=== PATIENT | female | born 1995 | race African-American/Black ===

== ENCOUNTER 2021-10-29 21:16 | Emergency (ER) | payer OTHER ==
[2021-10-29] MEDS ORDERED: Acetaminophen 500 MG TAB ONE (21:58)
[2021-10-29 22:05] LABS: #Eosinphils 0.1 10x3/uL (0.0-0.5); #Monocytes 0.4 10x3/uL (0.0-1.1); #Neutrophils 4.8 10x3/uL (1.5-8.4); %Basophils 0.4 % (0.0-2.0); %Eosinophils 1.8 % (0.0-6.0); %Lymphocytes 24.2 % (18.0-47.0); %Monocytes 5.9 % (0.0-10.0); %Neutrophils 66.6 % (40.0-75.0); Hemoglobin 10.7 g/dL (12.0-15.5); Mean Corpuscular HGB CONC 33.3 g/dL (32.0-36.0); Mean Corpuscular Hemoglobin 23.8 pg (27.0-33.0); Mean Corpuscular Volume 71.3 fl (81.6-98.3); Platelet Count 288 10x3/uL (150-450); RBC Distribution Width 20.4 % (11.5-14.5); White Blood Cell (WBC) Count 7.3 10x3/uL (3.5-10.5)
[2021-10-29 22:11] LABS: Bilirubin Neg (Negative); Blood, Urine 250 (Negative); Clarity Bloody (Clear); Glucose, Urine (Dipstick) Normal (Negative); Ketone, Urine Negative (Negative); Leukocyte Negative (Negative); Nitrite Negative (Negative); Protein, Urine (Dipstick) 500 mg/dl (Neg-Trace); Urobilinogen Normal mg/dL (Less than 2)
[2021-10-29 22:30] LABS: RBC/HPF Greater than 50 HPF (0-3)
[2021-10-29 22:34] LABS: Bacteria/HPF 1+ HPF (None Seen)
[2021-10-29 22:35] LABS: Mucous/LPF 1+ LPF (<2+)
== END 2021-10-29 23:34 | disposition home or self-care (01) ==
LOC: CSHERS 21:16
DX: O20.0 Threatened abortion (principal); O99.331 Smoking (tobacco) complicating pregnancy, first trimester; F17.290 Nicotine dependence, other tobacco product, uncomplicated; Z3A.11 11 weeks gestation of pregnancy
CPT/HCPCS: 36415; 76856; 81003; 81015; 84702; 85025; 86900; 86901; 93976

== ENCOUNTER 2022-04-23 10:03 | Day surgery (SDC) | payer OTHER ==
[2022-04-23] MEDS ORDERED: hydrALAZINE 20 MG/ML VIAL SLOW IVP PRN (11:08)
[2022-04-23] MEDS ORDERED: Fioricet 325/50/40 mg Tablet PO SCH (11:15)
== END 2022-04-23 12:56 | disposition home or self-care (01) ==
LOC: CSHLD/OP 10:03
PROVIDERS: ATTEND Obstetrics & Gynecology
DX: O36.8130 Decreased fetal movements, third trimester, not applicable or unspecified (principal); O99.891 Other specified diseases and conditions complicating pregnancy; R51.9 Headache, unspecified; Z3A.36 36 weeks gestation of pregnancy
CPT/HCPCS: 76819

== ENCOUNTER 2022-05-11 13:03 | Day surgery (SDC) | payer OTHER ==
[2022-05-11 13:33] VITALS: BMI 21.4
[2022-05-11] MEDS ORDERED: hydrALAZINE 20 MG/ML VIAL SLOW IVP PRN (13:39)
[2022-05-11 13:57] LABS: Bilirubin Neg (Negative); Blood, Urine Negative (Negative); Clarity Clear (Clear); Glucose, Urine (Dipstick) Normal (Negative); Ketone, Urine 15 mg/dL (Negative); Leukocyte Negative (Negative); Nitrite Negative (Negative); Protein, Urine (Dipstick) Negative (Neg-Trace); Urobilinogen Normal mg/dL (Less than 2); pH, Urine 6.5 (5.0-9.0)
[2022-05-11 14:34] LABS: Bacteria/HPF None Seen HPF (None Seen); CAUTI Indications for Culture Pelvic or flank pain; RBC/HPF None Seen HPF (0-3); Squamous Epithelial 0-3 HPF (0-3); WBC/HPF None Seen HPF (0-3)
[2022-05-11 14:36] LABS: Urine Culture Reflex No No
[2022-05-11] MEDS ORDERED: Cyclobenzaprine 10 MG TAB PO SCH (15:00)
[2022-05-11] MEDS ORDERED: Acetaminophen 500 MG TAB PO SCH (15:00)
== END 2022-05-11 15:03 | disposition home or self-care (01) ==
LOC: CSHLD/OP 13:03
PROVIDERS: ATTEND Obstetrics & Gynecology
DX: O26.893 Other specified pregnancy related conditions, third trimester (principal); R10.9 Unspecified abdominal pain; Z3A.39 39 weeks gestation of pregnancy; Z79.899 Other long term (current) drug therapy
CPT/HCPCS: 81001; 99283

== ENCOUNTER 2022-05-17 06:00 | Inpatient (IN) | payer OTHER ==
[~2022-05-17 06:00] MED LIST: Ibuprofen 800 MG TAB PO PRN; Lidocaine 1% (PF) 30 ML VIAL SC PRN; Misoprostol 200 MCG TAB PR PRN; NS w/ Oxytocin 30 units 500 ML IV SCH; Ondansetron PF 4 MG/2 ML Vial IVP PRN; Promethazine HCl 25 MG/ML VIAL IM PRN; hydrALAZINE 20 MG/ML VIAL SLOW IVP PRN
[2022-05-17] MEDS: Lactated Ringer's 1,000 ML IV SCH ×3 (07:15→18:36)
[2022-05-17 07:27] VITALS: BMI 25.9
[2022-05-17 07:48] LABS: Hemoglobin 9.9 g/dL (12.0-15.5); Mean Corpuscular HGB CONC 33.7 g/dL (32.0-36.0); Mean Corpuscular Hemoglobin 23.6 pg (27.0-33.0); Mean Platelet Volume 10.9 fl (7.4-10.4); Platelet Count 245 10x3/uL (150-450); RBC Distribution Width 16.1 % (11.5-14.5); White Blood Cell (WBC) Count 7.4 10x3/uL (3.5-10.5)
[2022-05-17] MEDS ORDERED: Bupivacaine 0.25% HCL 30 ML VIAL ONE (08:00)
[2022-05-17] MEDS ORDERED: Bupivacaine/Epinephrine 0.25% 30 ML VIAL ONE (08:00)
[2022-05-17] MEDS ORDERED: Loperamide HCl 2 MG CAP PO PRN (08:03)
[2022-05-17 08:13] LABS: SARS-CoV-2 NAA Rapid Test Not Detected (NotDetected)
[2022-05-17] MEDS ORDERED: Loperamide HCl 2 MG CAP PO SCH (08:15)
[2022-05-17 08:26] LABS: HBSAg Index 0.15 S/CO (0-0.99); Hep B Surf Ag Non-Reactive S/CO (NonReactive)
[2022-05-17 08:27] LABS: Syphilis Antibody Nonreactive (Nonreactive); Syphilis Antibody Index 0.04 S/CO (<1.00 Non-Reactive)
[2022-05-17] MEDS ORDERED: Fentanyl 2 mcg/Bup 0.1% Cadd 100 ML ONE ×2 (09:23→14:16)
[2022-05-17] MEDS ORDERED: ePHEDrine Sulfate 50 MG/10 ML VIAL SLOW IVP PRN (10:13)
[2022-05-17] MEDS ORDERED: Promethazine HCl 25 MG/ML VIAL IM PRN (10:13)
[2022-05-17] MEDS ORDERED: Naloxone HCl 0.4 mg/ml Vial IVP PRN ×2 (10:13)
[2022-05-17] MEDS ORDERED: Moisturizing Cream (Eucerin) 113 GM JAR TOP PRN (10:13)
[2022-05-17] MEDS ORDERED: Acetaminophen 325 MG TAB PO PRN (10:13)
[2022-05-17] MEDS ORDERED: Ondansetron PF 4 MG/2 ML Vial IVP PRN (10:13)
[2022-05-17] MEDS ORDERED: diphenhydrAMINE 50 MG/ML VIAL IVP PRN (10:13)
[2022-05-17] MEDS ORDERED: Communication Order-Pharmacy FS SCH (10:15)
[2022-05-17] MEDS: Fentanyl 2 mcg/Bupivacaine 0.1% Cassette 100 ML EPIDURAL SCH ×2 (10:30→14:20)
[2022-05-17] MEDS ORDERED: Lactated Ringer's 500 ML IV PRN (10:30)
[2022-05-17] MEDS ORDERED: Dexmedetomidine 200 MCG/2 ML VIAL ONE (11:41)
[2022-05-17] MEDS ORDERED: Diphenoxylate HCl/Atropine Tablet PO SCH (17:30)
[2022-05-17] MEDS ORDERED: Diphenoxylate HCl/Atropine Tablet PO PRN (17:31)
[2022-05-17] MEDS ORDERED: Lanolin Ointment 7 GM TUBE TOP PRN (18:31)
[2022-05-17] MEDS ORDERED: Bisacodyl 10 MG SUPP PR PRN (18:31)
[2022-05-17] MEDS ORDERED: hydrALAZINE 20 MG/ML VIAL SLOW IVP PRN (18:31)
[2022-05-17] MEDS ORDERED: diphenhydrAMINE 25 MG CAP PO PRN (18:31)
[2022-05-17] MEDS ORDERED: Boostrix 0.5 ML (Tdap) VIAL (>/=7 yrs of age) IM ONE (18:31)
[2022-05-17] MEDS ORDERED: Milk Of Magnesia 30 ML UDCUP PO PRN (18:31)
[2022-05-17] MEDS ORDERED: Preparation H Ointment 28 GM TUBE PR PRN (18:31)
[2022-05-17] MEDS ORDERED: Benzocaine-Menthol 82.5 ML CAN TOP PRN (18:31)
[2022-05-17] MEDS ORDERED: Ferrous Sulfate 325 MG TAB PO SCH (19:00)
[2022-05-17] MEDS: Docusate 100 MG CAP PO SCH (22:01)
[2022-05-17] MEDS: Ibuprofen 800 MG TAB PO SCH (22:01)
[2022-05-17] MEDS: Ferrous Sulfate 325 MG TAB PO SCH (22:02)
[2022-05-18] MEDS: Ibuprofen 800 MG TAB PO SCH ×3 (03:53→21:09)
[2022-05-18] MEDS: Ferrous Sulfate 325 MG TAB PO SCH ×2 (07:32→16:02)
[2022-05-18] MEDS: Docusate 100 MG CAP PO SCH ×2 (07:33→21:09)
[2022-05-18] MEDS: Prenatal Vitamin 1 TAB PO SCH ×2 (07:33→08:18)
[2022-05-18] MEDS: traMADol HCl 50 MG TAB PO PRN ×2 (09:15→20:06)
[2022-05-19] MEDS: Ibuprofen 800 MG TAB PO SCH (06:10)
[2022-05-19 07:48] VITALS: BP 122/70; TEMP 98.2
[2022-05-19] MEDS: Prenatal Vitamin 1 TAB PO SCH (08:28)
[2022-05-19] MEDS: Docusate 100 MG CAP PO SCH (08:28)
[2022-05-19] MEDS: Ferrous Sulfate 325 MG TAB PO SCH (08:28)
== END 2022-05-19 11:45 | disposition home or self-care (01) | DRG 807 ==
LOC: CSHLD 06:39 → CSHPP 18:15
PROVIDERS: ADMIT Obstetrics & Gynecology; ATTEND Obstetrics & Gynecology
PROC: 10E0XZZ Delivery of Products of Conception, External Approach (ICD-10-PCS; principal; 2022-05-17)
PROC: 10D17Z9 Manual Extraction of Products of Conception, Retained, Via Natural or Artificial Opening (ICD-10-PCS; 2022-05-17)
DX: O69.89X0 Labor and delivery complicated by other cord complications, not applicable or unspecified (principal); Z37.0 Single live birth; Z20.822 Contact with and (suspected) exposure to COVID-19; Z3A.40 40 weeks gestation of pregnancy
CPT/HCPCS: 36415; 51702; 85027; 86780; 86850; 86900; 86901; 87340; J2590; J7120; S0020; U0002

== ENCOUNTER 2023-03-01 17:33 | Emergency (ER) | payer OTHER, SELFPAY ==
[2023-03-01] MEDS ORDERED: Acetaminophen 325 MG TAB ONE (18:17)
[2023-03-01] MEDS ORDERED: Ondansetron ODT 4 MG TAB ONE (18:39)
[2023-03-01 18:43] LABS: SARS-CoV-2 NAA Rapid Test Not Detected (NotDetected)
== END 2023-03-01 19:57 | disposition home or self-care (01) ==
LOC: CSHERS 17:33
DX: J10.1 Influenza due to other identified influenza virus with other respiratory manifestations (principal); Z20.822 Contact with and (suspected) exposure to COVID-19; F17.290 Nicotine dependence, other tobacco product, uncomplicated
CPT/HCPCS: 99283; Q0162